=== PATIENT | male | born 2000 | race American Indian/Alaskan Native ===

== ENCOUNTER 2022-05-01 18:17 | Emergency (ER) | payer SELFPAY ==
[2022-05-01 19:01] VITALS: BP 115/57
--- NOTE | 2022-05-02 03:32 | Emergency Department Report ---
ED General Adult HPI - General Chief complaint: Rectal Pain Stated complaint: HEMORROID Source: patient Mode of arrival: Ambulatory Limitations: No Limitations - History of Present Illness Initial comments: Patient is a 21-year-old male with no past medical history presents to the ED with complaint of acute onset rectal pain due to external hemorrhoids for the last 1 week. Patient states that he has been laying down on sitz bath's with Epsom salt, and trying to eat more fiber diet and drinking plenty of fluids with no relief. Patient states that in the last 2 days he noticed that there was rectal bleeding with each episode of bowel movement. Patient admits that he has had significant constipation in the last month. Patient denies fever, chills, lightheadedness, dizziness, syncope, nausea and vomiting or diarrhea, abdominal pain, chest pain or shortness of breath or fever and chills. MD Complaint: Rectal pain, external hemorrhoids -: Sudden, week(s) (1) Location: buttocks Radiation: non-radiation Severity scale (0 -10): 6 Quality: aching, sharp Consistency: constant Improves with: none Worsens with: other (Bowel movement) Associated Symptoms: denies other symptoms. denies: confusion, chest pain, cough, diaphoresis, fever/chills, headaches, loss of appetite, malaise, nausea/vomiting, rash, seizure, shortness of breath, syncope, weakness Treatments Prior to Arrival: none - Related Data Previous Rx's Medication Instructions Recorded Last Taken Type Dibucaine 1% [Nupercainal] 1 applicatio RI TID #1 tube 05/02/22 Unknown Rx Docusate Sodium [Colace CAP] 100 mg PO BID #60 capsule 05/02/22 Unknown Rx Hydrocortisone [Anusol-Hc 2.5% TOP 30 gm RC TID PRN #1 tube 05/02/22 Unknown Rx CREAM] Ibuprofen [Motrin] 600 mg PO Q8H PRN #24 tablet 05/02/22 Unknown Rx Allergies Allergy/AdvReac Type Severity Reaction Status Date / Time No Known Allergies Allergy Verified 05/01/22 19:01 ED Review of Systems ROS: Stated complaint: HEMORROID Other details as noted in HPI Constitutional: denies: chills, fever Eyes: denies: eye pain, eye discharge, vision change ENT: denies: ear pain, throat pain Respiratory: denies: cough, shortness of breath, wheezing Cardiovascular: denies: chest pain, palpitations Endocrine: no symptoms reported Gastrointestinal: other (Painful external hemorrhoids). denies: abdominal pain, nausea, diarrhea Genitourinary: denies: urgency, dysuria Musculoskeletal: denies: back pain, joint swelling, arthralgia Skin: denies: rash, lesions Neurological: denies: headache, weakness, paresthesias Psychiatric: denies: anxiety, depression Hematological/Lymphatic: denies: easy bleeding, easy bruising ED Past Medical Hx - Past Medical History Previous Medical History?: No - Medications Home Medications: Home Medications Medication Instructions Recorded Confirmed Last Taken Type Dibucaine 1% [Nupercainal] 1 applicatio RI TID #1 tube 05/02/22 Unknown Rx Docusate Sodium [Colace CAP] 100 mg PO BID #60 capsule 05/02/22 Unknown Rx Hydrocortisone [Anusol-Hc 2.5% TOP 30 gm RC TID PRN #1 tube 05/02/22 Unknown Rx CREAM] Ibuprofen [Motrin] 600 mg PO Q8H PRN #24 tablet 05/02/22 Unknown Rx ED Physical Exam - General Limitations: No Limitations General appearance: alert, in no apparent distress - Head Head exam: Present: atraumatic, normocephalic, normal inspection - Eye Eye exam: Present: normal appearance, PERRL, EOMI Pupils: Present: normal accommodation - ENT ENT exam: Present: normal exam, normal orophraynx, mucous membranes moist, TM's normal bilaterally, normal external ear exam - Neck Neck exam: Present: normal inspection, full ROM. Absent: tenderness - Respiratory Respiratory exam: Present: normal lung sounds bilaterally. Absent: respiratory distress, wheezes, rales, rhonchi, chest wall tenderness, accessory muscle use, decreased breath sounds - Cardiovascular Cardiovascular Exam: Present: normal rhythm, bradycardia, normal heart sounds. Absent: systolic murmur, diastolic murmur, rubs, gallop - GI/Abdominal GI/Abdominal exam: Present: soft, normal bowel sounds. Absent: tenderness, guarding, rebound, hyperactive bowel sounds, hypoactive bowel sounds, orga nomegaly - Rectal Rectal exam: Present: normal inspection, normal rectal tone, hemorrhoids (Tender external hemorrhoid), tenderness. Absent: bloody stool, fecal impaction - Extremities Exam Extremities exam: Present: normal inspection, full ROM, normal capillary refill - Back Exam Back exam: Present: normal inspection, full ROM. Absent: tenderness, CVA tenderness (R), CVA tenderness (L), muscle spasm, paraspinal tenderness, vertebral tenderness - Neurological Exam Neurological exam: Present: alert, oriented X3, CN II-XII intact, normal gait, reflexes normal - Psychiatric Psychiatric exam: Present: normal affect, normal mood - Skin Skin exam: Present: warm, dry, intact, normal color. Absent: rash ED Course Vital Signs 05/01/22 18:58 Temperature 98.1 F Pulse Rate 53 L Respiratory 16 Rate Blood Pressure 115/57 O2 Sat by Pulse 99 Oximetry ED Medical Decision Making - Medical Decision Making This is a 21-year-old male with no past medical history presents to the ED with complaint of acute onset rectal pain due to external hemorrhoids for the last 1 week. Patient states that he has been laying down on sitz bath's with Epsom salt, and trying to eat more fiber diet and drinking plenty of fluids with no relief. Patient states that in the last 2 days he noticed that there was rectal bleeding with each episode of bowel movement. Patient admits that he has had significant constipation in the last month. In the ED, patient is alert and oriented x3 and is not in any distress. Patient the history and physical exam findings, the patient was discharge home on medications and advised to follow-up with his primary care physician in 7 to 10 days for reevaluation or return to the ED immediately if symptoms get worse. - Differential Diagnosis External hemorrhoid; constipation; rectal bleeding Critical care attestation.: If time is entered above; I have spent that time in minutes in the direct care of this critically ill patient, excluding procedure time. ED Disposition Clinical Impression: External hemorrhoids without complication, Rectal or anal pain Constipation Qualifiers: Constipation type: other constipation type Qualified Code(s): K59.09 - Other constipation Disposition: 01 HOME / SELF CARE / HOMELESS Is pt being admited?: No Does the pt Need Aspirin: No Condition: Stable Instructions: Hemorrhoids, [id number], Nonsurgical Procedures for Hemorrhoids, Constipation, Adult, [id number] Additional Instructions: Take medication with food, apply the prescribed ointment to the affected area as advised. Return to the ED immediately if symptoms get worse. Otherwise follow-up with your primary care physician in 7 to 10 days for reevaluation. Prescriptions: Hydrocortisone [Anusol-Hc 2.5% TOP CREAM] 30 gm RC TID PRN #1 tube PRN Reason: Pain , Severe (7-10) Docusate Sodium [Colace CAP] 100 mg PO BID #60 capsule Ibuprofen [Motrin] 600 mg PO Q8H PRN #24 tablet PRN Reason: Pain Dibucaine 1% [Nupercainal] 1 applicatio RI TID #1 tube Referrals: KARIS MEDEL MD [Primary Care Provider] - 3-5 Days Time of Disposition: 03:30 Print Language: GUYANESE
== END 2022-05-02 04:15 | disposition home or self-care (01) ==
LOC: ED 18:17
DX: K64.4 Residual hemorrhoidal skin tags (principal); K62.89 Other specified diseases of anus and rectum; K59.00 Constipation, unspecified
CPT/HCPCS: 99282